=== PATIENT | female | born 1945 | race Caucasian/White ===

== ENCOUNTER → 2016-07-20 | Outpatient (CLI) | payer BC, MEDICARE ==
[~2016-07-20] MED LIST: ALEVE220 MG PO; AMBIEN 5MG TABLE5 MG PO; AMBIEN5 M1 PO; ANUSOL HC CREAM30 GM TOP; CALCIUM 600 MG-1 TAB PO; CEPHALEXIN500 M1 PO; CHILDREN'S ASPI81 M1 PO; CHILDREN'S CHEW1 CT2 PO; CLARITIN10 M1 PO; COLACE 100100 MG/CAP PO; DITROPAN XL 5MG5 M1 PO; DOS PO; KONSYL ORA PO; LIBRIUM 10M10 MG/CAP PO; MEDI-FIRST ASP325 MG PO; MULTIVITAMIN PO; NORCO 325 MG-51 TA1 PO; NORCO 325 MG-7.1 TAB PO; OXYCODONE PO; PEG 335017 GM/Dose PO; RECLAST5 MG/1001 IV; ROXICODONE 55 MG/TAB PO; SARNA ANTI-ITC222 ML TOP; SENOKOT S 50 MG1 TAB PO; TOPROL XL50 MG PO; VESICARE10 MG PO; VITAMIN C PURE500 M1 PO
== END ==
LOC: MAMMO 09:15
DX: Z12.31 Encounter for screening mammogram for malignant neoplasm of breast (principal)
CPT/HCPCS: G0202

== ENCOUNTER → 2016-07-28 | Outpatient (CLI) | payer BC, MEDICARE | LOC: LAB 07:52 | DX: Z00.00 Encounter for general adult medical examination without abnormal findings (principal); Z13.220 Encounter for screening for lipoid disorders; R53.81 Other malaise ==

== ENCOUNTER → 2016-08-26 | Outpatient (CLI) | payer BC, MEDICARE | LOC: LAB 10:35 | DX: Z01.818 Encounter for other preprocedural examination (principal); N39.3 Stress incontinence (female) (male); N81.10 Cystocele, unspecified ==

== ENCOUNTER → 2016-09-14 | Outpatient (CLI) | payer BC, MEDICARE ==
[2016-09-14 10:52] VITALS: BP 163/74
== END ==
LOC: AMSURD 10:19
DX: Z01.818 Encounter for other preprocedural examination (principal); N81.10 Cystocele, unspecified; B94.8 Sequelae of other specified infectious and parasitic diseases

== ENCOUNTER → 2016-09-15 | Outpatient (CLI) | payer BC, MEDICARE | LOC: VAS 17:22 | DX: R94.01 Abnormal electroencephalogram [EEG] (principal); Z01.818 Encounter for other preprocedural examination; Z87.891 Personal history of nicotine dependence; I34.0 Nonrheumatic mitral (valve) insufficiency ==

== ENCOUNTER → 2016-11-04 | Outpatient (CLI) | payer BC, MEDICARE ==
[2016-09-14 10:52] VITALS: BP 163/74
== END ==
LOC: LAB 11:25
DX: R35.0 Frequency of micturition (principal)

== ENCOUNTER → 2016-12-15 | Outpatient (CLI) | payer BC, MEDICARE ==
[2016-09-14 10:52] VITALS: BP 163/74
== END ==
LOC: LAB 11:56
DX: L29.8 Other pruritus (principal)

== ENCOUNTER → 2017-01-27 | Outpatient (CLI) | payer BC, MEDICARE ==
[2016-09-14 10:52] VITALS: BP 163/74
== END ==
LOC: LAB 11:32
DX: N76.3 Subacute and chronic vulvitis (principal)

== ENCOUNTER → 2017-07-26 | Outpatient (CLI) | payer BC ==
[2016-09-14 10:52] VITALS: BP 163/74
[2017-07-26 10:09] LABS: ALBUMIN 4.3 g/dL (3.5-5.0); BUN/CREATININE RATIO 13.1 (6.0-26.0); CALCIUM 9.6 mg/dL (8.4-10.2); POTASSIUM 3.8 mmol/L (3.6-5.0); TOTAL BILIRUBIN 0.4 mg/dL (0.2-1.3); TOTAL PROTEIN 7.1 g/dL (6.3-8.2)
== END ==
LOC: LAB 09:22 → RAD 09:22
PROVIDERS: Nurse Practitioner Family
DX: Z12.31 Encounter for screening mammogram for malignant neoplasm of breast (principal); I25.10 Atherosclerotic heart disease of native coronary artery without angina pectoris

== ENCOUNTER → 2018-01-02 | Outpatient (CLI) | payer BC ==
[2016-09-14 10:52] VITALS: BP 163/74
== END ==
LOC: RAD 01-01 11:51
DX: R09.89 Other specified symptoms and signs involving the circulatory and respiratory systems (principal); M81.0 Age-related osteoporosis without current pathological fracture

== ENCOUNTER → 2018-02-20 | Day surgery (SDC) | payer BC ==
[2016-09-14 10:52] VITALS: BP 163/74
[~2018-02-20] MED LIST changes: +ANIMAL CHEWS1 EACH PO; +AUGMENTIN 875-1 EAC1 PO; +MYRBETRIQ50 MG PO
== END ==
LOC: MSO 08:15
DX: R19.5 Other fecal abnormalities (principal); D12.0 Benign neoplasm of cecum; D12.3 Benign neoplasm of transverse colon; Z86.010 Personal history of colon polyps; K59.00 Constipation, unspecified; Z79.82 Long term (current) use of aspirin; Z79.899 Other long term (current) drug therapy; I50.9 Heart failure, unspecified; I20.9 Angina pectoris, unspecified; I38 Endocarditis, valve unspecified
CPT/HCPCS: 00811; J2704; J7120

== ENCOUNTER 2018-02-24 13:45 | Emergency (ER) | payer BC ==
[~2018-02-24] VITALS: Ht 162.6 cm; Wt 47.7 kg
[~2018-02-24 13:45] MED LIST changes: -ANIMAL CHEWS1 EACH PO; -AUGMENTIN 875-1 EAC1 PO; -MYRBETRIQ50 MG PO
[2018-02-24] MEDS ORDERED: MYRBETRIQ50 MG PO (15:08)
[2018-02-24] MEDS ORDERED: CHILDREN'S ASPI81 M1 PO (15:08)
[2018-02-24] MEDS ORDERED: ANIMAL CHEWS1 EACH PO (15:09)
[2018-02-24] MEDS ORDERED: NORCO 325 MG-51 TA1 PO (16:09)
[2018-02-24] MEDS ORDERED: AUGMENTIN 875-1 EAC1 PO (16:09)
[2018-02-24 16:43] VITALS: BP 150/89
== END 2018-02-24 16:25 | disposition home or self-care (01) ==
LOC: ED 13:45
DX: S09.90XA Unspecified injury of head, initial encounter (principal); S81.012A Laceration without foreign body, left knee, initial encounter; S01.111A Laceration without foreign body of right eyelid and periocular area, initial encounter; W01.198A Fall on same level from slipping, tripping and stumbling with subsequent striking against other object, initial encounter; Y92.009 Unspecified place in unspecified non-institutional (private) residence as the place of occurrence of the external cause; S50.311A Abrasion of right elbow, initial encounter; S50.812A Abrasion of left forearm, initial encounter; R40.2412 Glasgow coma scale score 13-15, at arrival to emergency department; Z79.82 Long term (current) use of aspirin; Z79.899 Other long term (current) drug therapy

== ENCOUNTER → 2018-02-28 | Outpatient (CLI) | payer BC ==
[2018-02-24 16:43] VITALS: BP 150/89
[~2018-02-28] MED LIST changes: +ANIMAL CHEWS1 EACH PO; +AUGMENTIN 875-1 EAC1 PO; +MYRBETRIQ50 MG PO
== END ==
LOC: RAD 09:33
DX: J84.10 Pulmonary fibrosis, unspecified (principal); R07.9 Chest pain, unspecified; M79.621 Pain in right upper arm; M25.78 Osteophyte, vertebrae; W19.XXXA Unspecified fall, initial encounter

== ENCOUNTER → 2018-03-07 | Outpatient (CLI) | payer BC ==
[2018-02-24 16:43] VITALS: BP 150/89
== END ==
LOC: LAB 09:26
DX: L03.116 Cellulitis of left lower limb (principal); L02.416 Cutaneous abscess of left lower limb; Z91.81 History of falling

== ENCOUNTER → 2018-03-30 | Outpatient (CLI) | payer BC ==
[2018-03-30 11:21] LABS: HEMATOCRIT 41.1 % (37.0-47.0); MEAN CELL VOLUME 96 fl (78-100); MEAN CORPUSCULAR HEMOGLOBIN 33 pg (27-31); MEAN CORPUSCULAR HGB CONC 34 g/dL (33-37); MEAN PLATELET VOLUME 8.8 fl (7.4-10.4); PLATELET COUNT 360 K/mm3 (130-400); RED BLOOD COUNT 4.27 M/mm3 (4.10-5.30); RED CELL DISTRIBUTION WIDTH 12.2 % (11.5-14.5); WHITE BLOOD COUNT 6.4 K/mm3 (4.8-10.8)
[2018-03-30 11:47] LABS: ALBUMIN 4.7 g/dL (3.5-5.0); CALCIUM 9.7 mg/dL (8.4-10.2); TOTAL BILIRUBIN 0.6 mg/dL (0.2-1.3); TOTAL PROTEIN 7.5 g/dL (6.3-8.2)
[2018-03-30 12:04] LABS: POTASSIUM 3.8 mmol/L (3.6-5.0)
[2018-03-30 12:42] LABS: LYMPHOCYTE 32 % (20-51); MONOCYTE 8 % (3-10); NEUTROPHILS 58 % (42-75)
[2018-03-30 12:44] LABS: ERYTHROCYTE SEDIMENTATION RATE 1 mm/hr (0-30)
== END ==
LOC: LAB 10:58
PROVIDERS: Physician Assistant
DX: M25.569 Pain in unspecified knee (principal); Z91.81 History of falling

== ENCOUNTER → 2018-04-03 | Outpatient (CLI) | payer BC | LOC: RAD 12:00 | DX: S80.02XA Contusion of left knee, initial encounter (principal); S80.12XA Contusion of left lower leg, initial encounter; W19.XXXA Unspecified fall, initial encounter ==

== ENCOUNTER → 2018-08-09 | Outpatient (CLI) | payer BC | LOC: MAMMO 13:32 | DX: Z12.31 Encounter for screening mammogram for malignant neoplasm of breast (principal) ==

== ENCOUNTER → 2018-11-09 | Outpatient (CLI) | payer BC ==
[2018-11-09 11:32] LABS: BASO # 0.1 (0.02-0.10); EOS % 0.5 % (1.0-5.0); HEMATOCRIT 39.6 % (37.0-47.0); HEMOGLOBIN 13.3 g/dL (12.5-16.0); LYMPH# 1.6 (1.50-4.00); MEAN CELL VOLUME 101 fl (78-100); MEAN CORPUSCULAR HEMOGLOBIN 34 pg (27-31); MEAN CORPUSCULAR HGB CONC 34 g/dL (33-37); MEAN PLATELET VOLUME 9.1 fl (7.4-10.4); MONO # 0.9 (0.20-0.80); NEU # 5.9 (1.40-6.50); PLATELET COUNT 266 K/mm3 (130-400); RED BLOOD COUNT 3.94 M/mm3 (4.10-5.30); RED CELL DISTRIBUTION WIDTH 12.3 % (11.5-14.5); WHITE BLOOD COUNT 8.4 K/mm3 (4.8-10.8)
[2018-11-09 12:11] LABS: ALBUMIN 4.4 g/dL (3.4-4.8); CALCIUM 10.1 mg/dL (8.3-10.5); POTASSIUM 3.8 mmol/L (3.5-5.1); TOTAL BILIRUBIN 0.4 mg/dL (0.2-1.2); TOTAL PROTEIN 6.9 g/dL (6.2-8.1)
== END ==
LOC: RAD 10:56
PROVIDERS: Physician Assistant
DX: J44.9 Chronic obstructive pulmonary disease, unspecified (principal); R10.13 Epigastric pain; R63.0 Anorexia; E03.9 Hypothyroidism, unspecified; F10.20 Alcohol dependence, uncomplicated; Z72.0 Tobacco use; I10 Essential (primary) hypertension; F43.0 Acute stress reaction; G47.00 Insomnia, unspecified; R53.83 Other fatigue

== ENCOUNTER → 2018-11-20 | Outpatient (CLI) | payer BC ==
[~2018-11-20] VITALS: Ht 162.6 cm; Wt 46.4 kg
[~2018-11-20] MED LIST changes: +ZANTAC150 M1 PO
[2018-11-20 10:22] VITALS: BP 156/79
== END ==
LOC: LAB 08:54
DX: I50.30 Unspecified diastolic (congestive) heart failure (principal); R10.13 Epigastric pain

== ENCOUNTER → 2018-11-22 | Outpatient (CLI) | payer BC ==
[2018-11-20 10:22] VITALS: BP 156/79
== END ==
LOC: RAD 08:42
DX: Z00.00 Encounter for general adult medical examination without abnormal findings (principal); Z12.31 Encounter for screening mammogram for malignant neoplasm of breast; M81.0 Age-related osteoporosis without current pathological fracture; J43.9 Emphysema, unspecified; J84.10 Pulmonary fibrosis, unspecified; R63.4 Abnormal weight loss

== ENCOUNTER → 2019-03-12 | Outpatient (CLI) | payer BC ==
[2018-11-20 10:22] VITALS: BP 156/79
[2019-03-12 09:15] LABS: HEMATOCRIT 40.1 % (37.0-47.0); HEMOGLOBIN 13.9 g/dL (12.5-16.0); MEAN CELL VOLUME 95 fl (78-100); MEAN CORPUSCULAR HEMOGLOBIN 33 pg (27-31); MEAN CORPUSCULAR HGB CONC 35 g/dL (33-37); MEAN PLATELET VOLUME 8.7 fl (7.4-10.4); PLATELET COUNT 305 K/mm3 (130-400); RED BLOOD COUNT 4.21 M/mm3 (4.10-5.30); RED CELL DISTRIBUTION WIDTH 13.7 % (11.5-14.5); WHITE BLOOD COUNT 6.8 K/mm3 (4.8-10.8)
[2019-03-12 10:05] LABS: ALBUMIN 4.8 g/dL (3.4-4.8); CALCIUM 10.2 mg/dL (8.3-10.5); POTASSIUM 3.2 mmol/L (3.5-5.1); TOTAL BILIRUBIN 0.4 mg/dL (0.2-1.2); TOTAL PROTEIN 7.4 g/dL (6.2-8.1)
[2019-03-12 11:35] LABS: LYMPHOCYTE 19 % (20-51); MONOCYTE 19 % (3-10); NEUTROPHILS 62 % (42-75)
== END ==
LOC: LAB 08:52
PROVIDERS: Internal Medicine Pulmonary Disease
DX: J44.9 Chronic obstructive pulmonary disease, unspecified (principal)

== ENCOUNTER → 2019-03-15 | Outpatient (CLI) | payer BC ==
[2018-11-20 10:22] VITALS: BP 156/79
[~2019-03-15] MED LIST changes: +ESCITALOPRAM10 MG PO; +NORVASC 10MG10 MG PO; +SINGULAIR 110 MG/TAB PO
== END ==
LOC: LAB 10:15
DX: J44.9 Chronic obstructive pulmonary disease, unspecified (principal)

== ENCOUNTER 2019-04-24 11:49 | Emergency (ER) | payer BC ==
[~2019-04-24 11:49] MED LIST changes: -ESCITALOPRAM10 MG PO; -NORVASC 10MG10 MG PO; -SINGULAIR 110 MG/TAB PO
[2019-04-24] MEDS ORDERED: NORVASC 10MG10 MG PO (12:03)
[2019-04-24] MEDS ORDERED: ESCITALOPRAM10 MG PO (12:03)
[2019-04-24] MEDS ORDERED: SINGULAIR 110 MG/TAB PO (12:04)
[2019-04-24 14:01] VITALS: BP 139/76
== END 2019-04-24 14:02 | disposition home or self-care (01) ==
LOC: ED 11:49
DX: S30.0XXA Contusion of lower back and pelvis, initial encounter (principal); M47.816 Spondylosis without myelopathy or radiculopathy, lumbar region; I50.9 Heart failure, unspecified; K21.9 Gastro-esophageal reflux disease without esophagitis; J44.9 Chronic obstructive pulmonary disease, unspecified; F17.210 Nicotine dependence, cigarettes, uncomplicated; Z79.82 Long term (current) use of aspirin; W18.30XA Fall on same level, unspecified, initial encounter; Y92.000 Kitchen of unspecified non-institutional (private) residence as the place of occurrence of the external cause

== ENCOUNTER 2019-05-18 13:18 | Emergency (ER) | payer BC ==
[~2019-05-18] VITALS: Ht 162.6 cm; Wt 46.4 kg
[~2019-05-18 13:18] MED LIST changes: +ESCITALOPRAM10 MG PO; +NORVASC 10MG10 MG PO; +SINGULAIR 110 MG/TAB PO
[2019-05-18 14:04] LABS: EOS % 0.2 % (1.0-5.0); HEMOGLOBIN 13.1 g/dL (12.5-16.0); LYMPH# 1.5 (1.50-4.00); MEAN CELL VOLUME 98 fl (78-100); MEAN CORPUSCULAR HEMOGLOBIN 34 pg (27-31); MEAN CORPUSCULAR HGB CONC 35 g/dL (33-37); MONO # 0.9 (0.20-0.80); NEU # 9.5 (1.40-6.50); PLATELET COUNT 226 K/mm3 (130-400); RED BLOOD COUNT 3.87 M/mm3 (4.10-5.30); RED CELL DISTRIBUTION WIDTH 12.8 % (11.5-14.5)
[2019-05-18 14:09] LABS: ALBUMIN 4.7 g/dL (3.4-4.8); POTASSIUM 3.3 mmol/L (3.5-5.1)
[2019-05-18 14:10] LABS: CALCIUM 9.5 mg/dL (8.3-10.5)
[2019-05-18 14:11] LABS: TOTAL PROTEIN 7.2 g/dL (6.2-8.1)
[2019-05-18 14:13] LABS: TOTAL BILIRUBIN 0.6 mg/dL (0.2-1.2)
[2019-05-18 14:18] LABS: MAGNESIUM 1.56 mg/dL (1.60-2.60)
[2019-05-18 14:44] LABS: PH-URINE 6.5 (5.0 - 8.0); URINE APPEARANCE HAZY; URINE BILIRUBIN NEGATIVE (NEGATIVE); URINE BLOOD TRACE (NEGATIVE); URINE COLOR YELLOW; URINE GLUCOSE NEGATIVE (NEGATIVE); URINE KETONE NEGATIVE (NEGATIVE); URINE LEUKOCYTE ESTERASE 1+ (NEGATIVE); URINE NITRATE POSITIVE (NEGATIVE); URINE PROTEIN(semi-quant) TRACE mg/dL (NEGATIVE); URINE UROBILINOGEN NORMAL (NORMAL)
[2019-05-18 14:45] LABS: URINE MUCUS NOT PRESENT (NOT PRESENT)
[2019-05-18] MEDS ORDERED: MELATONIN5 M3 PO (14:57)
[2019-05-18] MEDS ORDERED: AMLODIPINE BES2.5 MG PO (14:58)
[2019-05-18] MEDS ORDERED: ZYRTEC ALLERGY10 MG PO (14:59)
[2019-05-18] MEDS ORDERED: NICOTINE TRANSD1 TDM TD (15:10)
[2019-05-18 15:58] VITALS: BP 161/86
== END 2019-05-18 16:00 | disposition other institution (70) ==
LOC: ED 13:18
PROVIDERS: Nurse Practitioner Primary Care
DX: F10.129 Alcohol abuse with intoxication, unspecified (principal); M54.5 Low back pain; R29.6 Repeated falls; I10 Essential (primary) hypertension; J44.9 Chronic obstructive pulmonary disease, unspecified; F17.210 Nicotine dependence, cigarettes, uncomplicated; Z79.82 Long term (current) use of aspirin; Z98.890 Other specified postprocedural states; Y90.7 Blood alcohol level of 200-239 mg/100 ml

== ENCOUNTER 2019-05-18 14:45 | Inpatient (IN) | payer BC, MEDICARE ==
[~2019-05-18] VITALS: Ht 165.1 cm; Wt 46.1 kg
[2019-05-18] MEDS ORDERED: MELATONIN5 M3 PO (14:57)
[2019-05-18] MEDS ORDERED: AMLODIPINE BES2.5 MG PO (14:58)
[2019-05-18] MEDS ORDERED: ZYRTEC ALLERGY10 MG PO (14:59)
[2019-05-18] MEDS ORDERED: NICOTINE TRANSD1 TDM TD (15:10)
[2019-05-18 16:47] VITALS: BP 149/76
[2019-05-18 18:16] VITALS: BP 148/76
[2019-05-18 19:02] VITALS: BP 114/59
[2019-05-18 22:31] VITALS: BP 111/50
[2019-05-19 02:21] VITALS: BP 120/66
[2019-05-19 06:17] VITALS: BP 115/66
[2019-05-19 09:10] LABS: EOS # 0.1 (0.04-0.40); EOS % 0.6 % (1.0-5.0); HEMATOCRIT 37.1 % (37.0-47.0); HEMOGLOBIN 12.4 g/dL (12.5-16.0); LYMPH# 1.1 (1.50-4.00); MEAN CELL VOLUME 101 fl (78-100); MEAN CORPUSCULAR HEMOGLOBIN 34 pg (27-31); MEAN CORPUSCULAR HGB CONC 33 g/dL (33-37); MEAN PLATELET VOLUME 9.2 fl (7.4-10.4); NEU # 5.9 (1.40-6.50); PLATELET COUNT 194 K/mm3 (130-400); RED BLOOD COUNT 3.66 M/mm3 (4.10-5.30); WHITE BLOOD COUNT 8.1 K/mm3 (4.8-10.8)
[2019-05-19 09:11] LABS: POTASSIUM 3.3 mmol/L (3.5-5.1)
[2019-05-19 09:12] LABS: CALCIUM 9.3 mg/dL (8.3-10.5)
[2019-05-19 09:13] LABS: TOTAL PROTEIN 6.2 g/dL (6.2-8.1)
[2019-05-19 09:15] LABS: TOTAL BILIRUBIN 1.1 mg/dL (0.2-1.2)
[2019-05-19 10:18] VITALS: BP 122/68
[2019-05-19 14:16] VITALS: BP 127/64
[2019-05-19 18:11] VITALS: BP 147/83
[2019-05-19 22:15] VITALS: BP 129/66
[2019-05-20] VITALS (14 sets, daily range): BP systolic 125–159; BP diastolic 58–80
[2019-05-20 12:28] LABS: HEMATOCRIT 34.7 % (37.0-47.0); HEMOGLOBIN 11.7 g/dL (12.5-16.0); MEAN CELL VOLUME 102 fl (78-100); MEAN CORPUSCULAR HEMOGLOBIN 34 pg (27-31); MEAN CORPUSCULAR HGB CONC 34 g/dL (33-37); PLATELET COUNT 161 K/mm3 (130-400); RED CELL DISTRIBUTION WIDTH 12.7 % (11.5-14.5); WHITE BLOOD COUNT 7.5 K/mm3 (4.8-10.8)
[2019-05-20 12:38] LABS: POTASSIUM 3.7 mmol/L (3.5-5.1)
[2019-05-20 12:39] LABS: BAND 0 % (0-10); CALCIUM 8.9 mg/dL (8.3-10.5); LYMPHOCYTE 15 % (20-51); MONOCYTE 12 % (3-10); NEUTROPHILS 72 % (42-75)
[2019-05-20 12:40] LABS: TOTAL PROTEIN 6.1 g/dL (6.2-8.1)
[2019-05-20 12:42] LABS: TOTAL BILIRUBIN 0.6 mg/dL (0.2-1.2)
[2019-05-20 12:47] LABS: MAGNESIUM 1.37 mg/dL (1.60-2.60)
[2019-05-21] VITALS (13 sets, daily range): BP systolic 109–155; BP diastolic 62–79
[2019-05-21 06:30] LABS: HEMATOCRIT 34.9 % (37.0-47.0); HEMOGLOBIN 11.5 g/dL (12.5-16.0); MEAN CELL VOLUME 102 fl (78-100); MEAN CORPUSCULAR HEMOGLOBIN 34 pg (27-31); MEAN CORPUSCULAR HGB CONC 33 g/dL (33-37); PLATELET COUNT 176 K/mm3 (130-400); RED BLOOD COUNT 3.41 M/mm3 (4.10-5.30); RED CELL DISTRIBUTION WIDTH 12.5 % (11.5-14.5)
[2019-05-21 06:43] LABS: POTASSIUM 3.6 mmol/L (3.5-5.1)
[2019-05-21 06:44] LABS: CALCIUM 9.5 mg/dL (8.3-10.5)
[2019-05-21 06:51] LABS: MAGNESIUM 1.55 mg/dL (1.60-2.60)
[2019-05-21 07:10] LABS: LYMPHOCYTE 17 % (20-51); MONOCYTE 12 % (3-10); NEUTROPHILS 69 % (42-75)
[2019-05-22 00:03] VITALS: BP 133/70
[2019-05-22 03:53] VITALS: BP 144/75
[2019-05-22 08:00] VITALS: BP 154/80
[2019-05-22 12:12] VITALS: BP 138/77
== END 2019-05-22 11:26 | disposition swing bed (61) | DRG 897 ==
LOC: MED/SURG 14:45
PROVIDERS: ADMIT Nurse Practitioner Primary Care
DX: F10.129 Alcohol abuse with intoxication, unspecified (principal); N39.0 Urinary tract infection, site not specified; Y90.7 Blood alcohol level of 200-239 mg/100 ml; I10 Essential (primary) hypertension; J44.9 Chronic obstructive pulmonary disease, unspecified; I50.9 Heart failure, unspecified; F41.9 Anxiety disorder, unspecified; F32.9 Major depressive disorder, single episode, unspecified; E87.6 Hypokalemia; M54.5 Low back pain; E83.42 Hypomagnesemia; Z90.710 Acquired absence of both cervix and uterus; Z91.81 History of falling; Z79.82 Long term (current) use of aspirin; Z88.9 Allergy status to unspecified drugs, medicaments and biological substances
CPT/HCPCS: C9113; J1650; J1885; J2060; J3411; J3475; J3490; J7030

== ENCOUNTER 2019-05-22 12:21 | Inpatient (IN) | payer BC, MEDICARE ==
[~2019-05-22] VITALS: Ht 167.6 cm; Wt 49.6 kg
[~2019-05-22 12:21] MED LIST changes: +AMLODIPINE BES2.5 MG PO; +MELATONIN5 M3 PO; +NICOTINE TRANSD1 TDM TD; +ZYRTEC ALLERGY10 MG PO
[2019-05-22 12:40] VITALS: BP 138/77
[2019-05-22 12:42] VITALS: BP 138/77
[2019-05-22 12:53] LABS: EOS # 0.1 (0.04-0.40); HEMATOCRIT 34.2 % (37.0-47.0); HEMOGLOBIN 11.4 g/dL (12.5-16.0); LYMPH# 0.9 (1.50-4.00); MEAN CELL VOLUME 103 fl (78-100); MEAN CORPUSCULAR HEMOGLOBIN 34 pg (27-31); MEAN CORPUSCULAR HGB CONC 33 g/dL (33-37); MEAN PLATELET VOLUME 8.9 fl (7.4-10.4); MONO # 0.8 (0.20-0.80); NEU # 5.3 (1.40-6.50); PLATELET COUNT 217 K/mm3 (130-400); RED BLOOD COUNT 3.33 M/mm3 (4.10-5.30); RED CELL DISTRIBUTION WIDTH 12.3 % (11.5-14.5); WHITE BLOOD COUNT 7.1 K/mm3 (4.8-10.8)
[2019-05-22 12:59] LABS: ALBUMIN 3.9 g/dL (3.4-4.8); POTASSIUM 3.9 mmol/L (3.5-5.1)
[2019-05-22 13:00] LABS: CALCIUM 9.7 mg/dL (8.3-10.5)
[2019-05-22 13:02] LABS: TOTAL PROTEIN 6.1 g/dL (6.2-8.1)
[2019-05-22 13:03] LABS: TOTAL BILIRUBIN 0.5 mg/dL (0.2-1.2)
[2019-05-22 13:08] LABS: MAGNESIUM 1.38 mg/dL (1.60-2.60)
[2019-05-22 15:06] VITALS: BP 124/68
[2019-05-22 18:07] VITALS: BP 127/64
[2019-05-22 22:09] VITALS: BP 133/71
[2019-05-23 02:08] VITALS: BP 128/71
[2019-05-23 05:57] VITALS: BP 136/66
[2019-05-23 10:00] VITALS: BP 133/79
[2019-05-23 14:00] VITALS: BP 130/67
[2019-05-23 18:52] VITALS: BP 128/66
[2019-05-23 22:31] VITALS: BP 138/63
[2019-05-24 02:43] VITALS: BP 133/75
[2019-05-24 05:52] VITALS: BP 121/75
[2019-05-24 10:00] VITALS: BP 117/78
[2019-05-24 12:31] LABS: POTASSIUM 5.6 mmol/L (3.5-5.1)
[2019-05-24 12:32] LABS: CALCIUM 9.9 mg/dL (8.3-10.5)
[2019-05-24 12:39] LABS: MAGNESIUM 1.57 mg/dL (1.60-2.60)
[2019-05-24 14:20] VITALS: BP 123/69
[2019-05-24 18:20] VITALS: BP 121/65
[2019-05-25 05:57] VITALS: BP 116/69
[2019-05-25 06:18] LABS: POTASSIUM 4.6 mmol/L (3.5-5.1)
[2019-05-25 06:19] LABS: CALCIUM 9.4 mg/dL (8.3-10.5)
[2019-05-25 06:26] LABS: MAGNESIUM 1.97 mg/dL (1.60-2.60)
[2019-05-25 18:20] VITALS: BP 119/66
[2019-05-26 06:03] VITALS: BP 130/65
[2019-05-26 18:35] VITALS: BP 130/72
[2019-05-27 06:12] VITALS: BP 121/66
[2019-05-27 18:09] VITALS: BP 128/62
[2019-05-28 06:33] VITALS: BP 134/71
[2019-05-28 18:24] VITALS: BP 144/67
[2019-05-29 05:57] VITALS: BP 134/72
[2019-05-29 06:19] LABS: POTASSIUM 4.4 mmol/L (3.5-5.1)
[2019-05-29 06:20] LABS: CALCIUM 9.4 mg/dL (8.3-10.5)
[2019-05-29 06:27] LABS: MAGNESIUM 1.59 mg/dL (1.60-2.60)
[2019-05-29] MEDS ORDERED: ZYRTEC ALLERGY10 MG PO (08:48)
[2019-05-29] MEDS ORDERED: IPRATROPIUM BROM3 M1 IH (08:49)
[2019-05-29] MEDS ORDERED: CHILDREN'S ASPI81 M1 PO (08:49)
[2019-05-29] MEDS ORDERED: AMLODIPINE BES2.5 MG PO (08:49)
[2019-05-29] MEDS ORDERED: NICOTINE TRANSD1 TDM TD (08:49)
[2019-05-29] MEDS ORDERED: MELOXICAM15 MG PO (08:52)
[2019-05-29] MEDS ORDERED: ACETAMINOPHEN325 M1 PO (08:52)
[2019-05-29] MEDS ORDERED: ESCITALOPRAM20 MG PO (08:53)
[2019-05-29] MEDS ORDERED: DOCUSATE SOD100 MG PO (08:54)
[2019-05-29] MEDS ORDERED: HEALTHYLAX17 GM/Dose PO (08:54)
[2019-05-29] MEDS ORDERED: SINGULAIR 110 MG/TAB PO (08:54)
[2019-05-29] MEDS ORDERED: Lidocaine 4% Patch TP (08:55)
[2019-05-29] MEDS ORDERED: FOLIC ACID1 MG PO (08:55)
[2019-05-29] MEDS ORDERED: ZANTAC150 M1 PO (08:55)
[2019-05-29] MEDS ORDERED: THIAMINE HCL100 M1 PO (08:55)
[2019-05-29] MEDS ORDERED: PANTOPRAZOLE SO40 MG PO (08:55)
[2019-05-29] MEDS ORDERED: MELATONIN5 M3 PO (08:56)
[2019-05-29] MEDS ORDERED: ANIMAL CHEWS1 EACH PO (08:56)
[2019-05-29] MEDS ORDERED: VITAMIN C500 MG PO (08:56)
[2019-05-29] MEDS ORDERED: KLONOPIN 0.5MG0.5 MG PO (08:57)
[2019-05-29] MEDS ORDERED: MAG-OX 400400 MG/TAB PO (08:57)
[2019-05-29] MEDS ORDERED: AEROSOL THERAPY1 DEV INH (08:58)
[2019-05-29] MEDS ORDERED: LIDODERM1 EACH TP (09:00)
[2019-05-29] MEDS ORDERED: MUCINEX1200 MG PO (09:09)
[2019-05-29 18:20] VITALS: BP 139/69
[2019-05-30 06:06] VITALS: BP 144/64
== END 2019-05-30 10:25 | disposition home or self-care (01) | DRG 948 ==
LOC: MED/SURG 12:21
PROVIDERS: Nurse Practitioner Family; ADMIT Nurse Practitioner Primary Care
DX: R53.81 Other malaise (principal); E46 Unspecified protein-calorie malnutrition; Z68.1 Body mass index [BMI] 19.9 or less, adult; N39.0 Urinary tract infection, site not specified; I10 Essential (primary) hypertension; F41.9 Anxiety disorder, unspecified; F10.20 Alcohol dependence, uncomplicated; E83.42 Hypomagnesemia; K21.9 Gastro-esophageal reflux disease without esophagitis; F17.210 Nicotine dependence, cigarettes, uncomplicated; Z79.82 Long term (current) use of aspirin; Z91.81 History of falling; Z90.710 Acquired absence of both cervix and uterus; Z88.6 Allergy status to analgesic agent; M54.5 Low back pain
CPT/HCPCS: J1650; J3475

== ENCOUNTER → 2019-08-08 | Outpatient (CLI) | payer BC ==
[~2019-08-08] MED LIST changes: +ACETAMINOPHEN325 M1 PO; +AEROSOL THERAPY1 DEV INH; +DOCUSATE SOD100 MG PO; +ESCITALOPRAM20 MG PO; +FOLIC ACID1 MG PO; +HEALTHYLAX17 GM/Dose PO; +IPRATROPIUM BROM3 M1 IH; +KLONOPIN 0.5MG0.5 MG PO; +LIDODERM1 EACH TP; +Lidocaine 4% Patch TP; +MAG-OX 400400 MG/TAB PO; +MELOXICAM15 MG PO; +MUCINEX1200 MG PO; +PANTOPRAZOLE SO40 MG PO; +THIAMINE HCL100 M1 PO; +VITAMIN C500 MG PO
[2019-08-08 15:26] LABS: HEMATOCRIT 38.2 % (37.0-47.0); HEMOGLOBIN 12.9 g/dL (12.5-16.0); MEAN CELL VOLUME 92 fl (78-100); MEAN CORPUSCULAR HEMOGLOBIN 31 pg (27-31); MEAN CORPUSCULAR HGB CONC 34 g/dL (33-37); MEAN PLATELET VOLUME 8.1 fl (7.4-10.4); PLATELET COUNT 370 K/mm3 (130-400); RED BLOOD COUNT 4.16 M/mm3 (4.10-5.30); RED CELL DISTRIBUTION WIDTH 12.3 % (11.5-14.5); WHITE BLOOD COUNT 6.4 K/mm3 (4.8-10.8)
[2019-08-08 15:48] LABS: POTASSIUM 3.7 mmol/L (3.5-5.1)
[2019-08-08 15:49] LABS: ALBUMIN 4.8 g/dL (3.4-4.8)
[2019-08-08 15:50] LABS: CALCIUM 9.8 mg/dL (8.3-10.5)
[2019-08-08 15:51] LABS: TOTAL PROTEIN 7.4 g/dL (6.2-8.1)
[2019-08-08 15:53] LABS: TOTAL BILIRUBIN 0.2 mg/dL (0.2-1.2)
[2019-08-08 15:58] LABS: MAGNESIUM 1.69 mg/dL (1.60-2.60)
[2019-08-08 17:00] LABS: LYMPHOCYTE 25 % (20-51); MONOCYTE 11 % (3-10); NEUTROPHILS 63 % (42-75)
[2019-08-08 17:01] LABS: ERYTHROCYTE SEDIMENTATION RATE 4 mm/hr (0-30)
[2019-08-08 17:32] LABS: URINE APPEARANCE HAZY; URINE COLOR YELLOW; URINE PROTEIN(semi-quant) 1+ mg/dL (NEGATIVE)
[2019-08-08 17:33] LABS: URINE BILIRUBIN NEGATIVE (NEGATIVE); URINE BLOOD NEGATIVE (NEGATIVE); URINE GLUCOSE NEGATIVE (NEGATIVE); URINE KETONE NEGATIVE (NEGATIVE); URINE LEUKOCYTE ESTERASE TRACE (NEGATIVE); URINE NITRATE POSITIVE (NEGATIVE); URINE UROBILINOGEN NORMAL (NORMAL)
== END ==
LOC: LAB 14:50 → RAD 14:50
PROVIDERS: Internal Medicine
DX: J44.1 Chronic obstructive pulmonary disease with (acute) exacerbation (principal); M54.5 Low back pain; Z72.0 Tobacco use

== ENCOUNTER → 2019-08-10 | Outpatient (CLI) | payer BC | LOC: CARDLAB → CARDREHAB 08:24 → CARDLAB 12:46 | DX: I50.30 Unspecified diastolic (congestive) heart failure (principal) | CPT/HCPCS: A9500 ==

== ENCOUNTER → 2019-08-10 | Outpatient (CLI) | payer BC | LOC: LAB 08-09 16:06 | DX: Z12.11 Encounter for screening for malignant neoplasm of colon (principal) ==

== ENCOUNTER → 2019-08-16 | Outpatient (CLI) | payer BC | LOC: RAD 08-09 16:00 → LAB 09:26 → RAD 10:45 | DX: Z13.820 Encounter for screening for osteoporosis (principal); Z12.11 Encounter for screening for malignant neoplasm of colon; S32.030A Wedge compression fracture of third lumbar vertebra, initial encounter for closed fracture; M81.0 Age-related osteoporosis without current pathological fracture ==

== ENCOUNTER 2019-08-23 10:00 | Outpatient (RCR) | payer BC ==
[2019-10-12] MEDS ORDERED: ROBAXIN 75750 MG/TA1 PO (10:49)
[2019-10-12] MEDS ORDERED: DESYREL50 MG PO (10:50)
[2019-10-12] MEDS ORDERED: LIDOCAINE1 EAC1 TP (10:53)
[2019-10-12] MEDS ORDERED: GAVILAX17 GM PO (10:55)
[2019-10-12] MEDS ORDERED: B COMPLEX1 EACH PO (10:56)
== END 2019-11-06 | disposition still patient (30) ==
LOC: OT
DX: M48.062 Spinal stenosis, lumbar region with neurogenic claudication (principal); M48.50XA Collapsed vertebra, not elsewhere classified, site unspecified, initial encounter for fracture

== ENCOUNTER → 2019-08-23 | Outpatient (CLI) | payer BC | LOC: LAB 07:46 | DX: Z12.11 Encounter for screening for malignant neoplasm of colon (principal) ==

== ENCOUNTER → 2019-09-17 | Outpatient (CLI) | payer BC | LOC: LAB 09:30 | DX: D64.9 Anemia, unspecified (principal); K90.9 Intestinal malabsorption, unspecified ==

== ENCOUNTER → 2019-10-12 | Outpatient (CLI) | payer BC ==
[~2019-10-12] VITALS: Ht 160 cm; Wt 54.1 kg
[~2019-10-12] MED LIST changes: +B COMPLEX1 EACH PO; +DESYREL50 MG PO; +GAVILAX17 GM PO; +LIDOCAINE1 EAC1 TP; +ROBAXIN 75750 MG/TA1 PO
[2019-10-12 10:20] VITALS: BP 138/71
[2019-10-12 11:05] VITALS: BP 145/71
== END ==
LOC: AMSURD 10:03
DX: M80.88XA Other osteoporosis with current pathological fracture, vertebra(e), initial encounter for fracture (principal)
CPT/HCPCS: J3489

== ENCOUNTER 2020-01-30 11:30 | Outpatient (RCR) | payer MEDICARE ==
[2019-10-12 11:05] VITALS: BP 145/71
== END 2020-01-30 12:00 ==
LOC: PT 11:30
DX: M25.562 Pain in left knee (principal); M54.5 Low back pain

== ENCOUNTER → 2020-02-06 | Day surgery (SDC) | payer MEDICARE ==
[2019-10-12 11:05] VITALS: BP 145/71
== END ==
LOC: MSO 10:37
DX: H25.812 Combined forms of age-related cataract, left eye (principal); M19.90 Unspecified osteoarthritis, unspecified site; J44.9 Chronic obstructive pulmonary disease, unspecified; F41.9 Anxiety disorder, unspecified; F32.9 Major depressive disorder, single episode, unspecified; Z87.891 Personal history of nicotine dependence; I50.30 Unspecified diastolic (congestive) heart failure; Z79.899 Other long term (current) drug therapy
CPT/HCPCS: 00142; J0171; J2250; V2632

== ENCOUNTER → 2020-03-20 | Outpatient (CLI) | payer MEDICARE ==
[2019-10-12 11:05] VITALS: BP 145/71
[2020-03-20 11:17] LABS: EOS # 0.1 (0.04-0.40); EOS % 1.3 % (1.0-5.0); HEMATOCRIT 40.4 % (37.0-47.0); HEMOGLOBIN 12.8 g/dL (12.5-16.0); LYMPH# 1.7 (1.50-4.00); MEAN CELL VOLUME 92 fl (78-100); MEAN CORPUSCULAR HEMOGLOBIN 29 pg (27-31); MEAN CORPUSCULAR HGB CONC 32 g/dL (33-37); MEAN PLATELET VOLUME 8.4 fl (7.4-10.4); MONO # 0.8 (0.20-0.80); NEU # 5.9 (1.40-6.50); PLATELET COUNT 330 K/mm3 (130-400); RED CELL DISTRIBUTION WIDTH 12.5 % (11.5-14.5); WHITE BLOOD COUNT 8.6 K/mm3 (4.8-10.8)
[2020-03-20 11:47] LABS: ALBUMIN 4.4 g/dL (3.4-4.8); POTASSIUM 4.3 mmol/L (3.5-5.1)
[2020-03-20 11:49] LABS: CALCIUM 9.5 mg/dL (8.3-10.5)
[2020-03-20 11:50] LABS: TOTAL PROTEIN 6.9 g/dL (6.2-8.1)
[2020-03-20 11:52] LABS: TOTAL BILIRUBIN 0.4 mg/dL (0.2-1.2)
== END ==
LOC: LAB 10:43
PROVIDERS: Physician Assistant
DX: Z00.00 Encounter for general adult medical examination without abnormal findings (principal); Z12.31 Encounter for screening mammogram for malignant neoplasm of breast; M48.062 Spinal stenosis, lumbar region with neurogenic claudication; S32.030A Wedge compression fracture of third lumbar vertebra, initial encounter for closed fracture; I50.30 Unspecified diastolic (congestive) heart failure; E61.1 Iron deficiency; M81.0 Age-related osteoporosis without current pathological fracture; I73.9 Peripheral vascular disease, unspecified; M79.605 Pain in left leg; R73.9 Hyperglycemia, unspecified

== ENCOUNTER → 2020-04-16 | Outpatient (CLI) | payer MEDICARE ==
[2019-10-12 11:05] VITALS: BP 145/71
== END ==
LOC: MAMMO 10:45
DX: Z00.00 Encounter for general adult medical examination without abnormal findings (principal); Z12.31 Encounter for screening mammogram for malignant neoplasm of breast; I50.9 Heart failure, unspecified; I50.30 Unspecified diastolic (congestive) heart failure; E61.1 Iron deficiency; M81.0 Age-related osteoporosis without current pathological fracture; M48.062 Spinal stenosis, lumbar region with neurogenic claudication; I73.9 Peripheral vascular disease, unspecified; S32.030A Wedge compression fracture of third lumbar vertebra, initial encounter for closed fracture; M79.605 Pain in left leg

== ENCOUNTER 2020-05-01 10:49 | Outpatient (RCR) | payer MEDICARE ==
[2019-10-12 11:05] VITALS: BP 145/71
== END 2020-05-12 16:23 | disposition still patient (30) ==
LOC: OPPGERO 10:49
DX: F32.89 Other specified depressive episodes (principal); F10.20 Alcohol dependence, uncomplicated; J44.9 Chronic obstructive pulmonary disease, unspecified; I50.30 Unspecified diastolic (congestive) heart failure; I11.0 Hypertensive heart disease with heart failure; I34.0 Nonrheumatic mitral (valve) insufficiency; M81.0 Age-related osteoporosis without current pathological fracture; M48.062 Spinal stenosis, lumbar region with neurogenic claudication; K63.5 Polyp of colon; E61.1 Iron deficiency; G47.00 Insomnia, unspecified; K13.79 Other lesions of oral mucosa; E03.9 Hypothyroidism, unspecified; Z80.3 Family history of malignant neoplasm of breast; Z81.1 Family history of alcohol abuse and dependence

== ENCOUNTER 2020-05-13 12:37 | Outpatient (RCR) | payer MEDICARE ==
[2019-10-12 11:05] VITALS: BP 145/71
== END 2020-06-12 18:21 | disposition home or self-care (01) ==
LOC: OPPGERO 12:37
DX: F33.9 Major depressive disorder, recurrent, unspecified (principal); F10.21 Alcohol dependence, in remission; Z80.3 Family history of malignant neoplasm of breast; Z87.891 Personal history of nicotine dependence

== ENCOUNTER → 2020-06-10 | Outpatient (CLI) | payer MEDICARE ==
[2019-10-12 11:05] VITALS: BP 145/71
[2020-06-10 11:07] LABS: BASO # 0.1 (0.02-0.10); EOS # 0.1 (0.04-0.40); EOS % 1.5 % (1.0-5.0); HEMATOCRIT 39.4 % (37.0-47.0); HEMOGLOBIN 12.5 g/dL (12.5-16.0); LYMPH# 1.7 (1.50-4.00); MEAN CELL VOLUME 91 fl (78-100); MEAN CORPUSCULAR HEMOGLOBIN 29 pg (27-31); MEAN CORPUSCULAR HGB CONC 32 g/dL (33-37); MEAN PLATELET VOLUME 8.8 fl (7.4-10.4); MONO # 0.7 (0.20-0.80); NEU # 6.1 (1.40-6.50); PLATELET COUNT 352 K/mm3 (130-400); RED BLOOD COUNT 4.31 M/mm3 (4.10-5.30); RED CELL DISTRIBUTION WIDTH 12.9 % (11.5-14.5); WHITE BLOOD COUNT 8.7 K/mm3 (4.8-10.8)
[2020-06-10 11:27] LABS: ALBUMIN 4.3 g/dL (3.4-4.8); POTASSIUM 4.7 mmol/L (3.5-5.1)
[2020-06-10 11:28] LABS: CALCIUM 9.2 mg/dL (8.3-10.5)
[2020-06-10 11:29] LABS: TOTAL PROTEIN 6.4 g/dL (6.2-8.1)
[2020-06-10 11:31] LABS: TOTAL BILIRUBIN 0.3 mg/dL (0.2-1.2)
== END ==
LOC: LAB 10:44
PROVIDERS: Physician Assistant
DX: I50.32 Chronic diastolic (congestive) heart failure (principal); R63.5 Abnormal weight gain; R73.9 Hyperglycemia, unspecified

== ENCOUNTER 2020-06-11 11:30 | Outpatient (RCR) | payer MEDICARE ==
[2019-10-12 11:05] VITALS: BP 145/71
== END 2020-06-16 | disposition home or self-care (01) ==
LOC: PT
DX: Z00.00 Encounter for general adult medical examination without abnormal findings (principal); M48.062 Spinal stenosis, lumbar region with neurogenic claudication; R53.83 Other fatigue; M81.0 Age-related osteoporosis without current pathological fracture; S32.030A Wedge compression fracture of third lumbar vertebra, initial encounter for closed fracture

== ENCOUNTER 2020-06-16 13:32 | Outpatient (RCR) | payer MEDICARE ==
[2019-10-12 11:05] VITALS: BP 145/71
== END 2020-07-11 12:31 | disposition home or self-care (01) ==
LOC: OPPGERO 13:32
DX: F32.9 Major depressive disorder, single episode, unspecified (principal); F10.99 Alcohol use, unspecified with unspecified alcohol-induced disorder

== ENCOUNTER 2020-07-14 09:17 | Outpatient (RCR) | payer MEDICARE ==
[2019-10-12 11:05] VITALS: BP 145/71
== END 2020-08-08 16:10 | disposition home or self-care (01) ==
LOC: OPPGERO 09:17
DX: F32.9 Major depressive disorder, single episode, unspecified (principal); F10.20 Alcohol dependence, uncomplicated; F41.8 Other specified anxiety disorders; I10 Essential (primary) hypertension; J44.9 Chronic obstructive pulmonary disease, unspecified; K63.5 Polyp of colon; I50.30 Unspecified diastolic (congestive) heart failure; D50.9 Iron deficiency anemia, unspecified; G47.00 Insomnia, unspecified; I34.0 Nonrheumatic mitral (valve) insufficiency; M81.0 Age-related osteoporosis without current pathological fracture; I73.9 Peripheral vascular disease, unspecified; M48.062 Spinal stenosis, lumbar region with neurogenic claudication; Z87.891 Personal history of nicotine dependence

== ENCOUNTER 2020-08-11 09:28 | Outpatient (RCR) | payer MEDICARE ==
[2019-10-12 11:05] VITALS: BP 145/71
== END 2020-09-10 15:18 | disposition home or self-care (01) ==
LOC: OPPGERO 09:28
DX: F33.8 Other recurrent depressive disorders (principal); F10.21 Alcohol dependence, in remission; I10 Essential (primary) hypertension; J44.9 Chronic obstructive pulmonary disease, unspecified; S32.000D Wedge compression fracture of unspecified lumbar vertebra, subsequent encounter for fracture with routine healing; K63.5 Polyp of colon; I50.30 Unspecified diastolic (congestive) heart failure; M81.0 Age-related osteoporosis without current pathological fracture; M48.062 Spinal stenosis, lumbar region with neurogenic claudication; I34.0 Nonrheumatic mitral (valve) insufficiency; D50.9 Iron deficiency anemia, unspecified; Z87.891 Personal history of nicotine dependence; Z80.3 Family history of malignant neoplasm of breast

== ENCOUNTER 2020-09-11 08:05 | Outpatient (RCR) | payer MEDICARE ==
[2019-10-12 11:05] VITALS: BP 145/71
== END 2020-10-10 15:51 | disposition home or self-care (01) ==
LOC: OPPGERO 08:05
DX: F33.1 Major depressive disorder, recurrent, moderate (principal); I10 Essential (primary) hypertension; Z85.3 Personal history of malignant neoplasm of breast; Z72.89 Other problems related to lifestyle

== ENCOUNTER 2020-10-13 09:26 | Outpatient (RCR) | payer MEDICARE ==
[2019-10-12 11:05] VITALS: BP 145/71
== END 2020-11-07 16:00 | disposition home or self-care (01) ==
LOC: OPPGERO 09:26
DX: F41.8 Other specified anxiety disorders (principal); F10.21 Alcohol dependence, in remission; I10 Essential (primary) hypertension; J44.9 Chronic obstructive pulmonary disease, unspecified; M48.50XA Collapsed vertebra, not elsewhere classified, site unspecified, initial encounter for fracture; E61.1 Iron deficiency; I34.0 Nonrheumatic mitral (valve) insufficiency; M81.0 Age-related osteoporosis without current pathological fracture; I73.9 Peripheral vascular disease, unspecified; M48.062 Spinal stenosis, lumbar region with neurogenic claudication; E03.9 Hypothyroidism, unspecified; Z79.899 Other long term (current) drug therapy

== ENCOUNTER 2020-11-11 10:07 | Outpatient (RCR) | payer MEDICARE ==
[2019-10-12 11:05] VITALS: BP 145/71
== END 2020-12-10 15:35 | disposition home or self-care (01) ==
LOC: OPPGERO 10:07
DX: F33.1 Major depressive disorder, recurrent, moderate (principal); F10.20 Alcohol dependence, uncomplicated; J44.9 Chronic obstructive pulmonary disease, unspecified; K63.5 Polyp of colon; I50.30 Unspecified diastolic (congestive) heart failure; I11.0 Hypertensive heart disease with heart failure; M81.0 Age-related osteoporosis without current pathological fracture; I73.9 Peripheral vascular disease, unspecified; M48.062 Spinal stenosis, lumbar region with neurogenic claudication; Z87.891 Personal history of nicotine dependence

== ENCOUNTER 2020-12-11 09:37 | Outpatient (RCR) | payer MEDICARE | END 2021-01-09 22:29 | disposition home or self-care (01) | LOC: OPPGERO 09:37 | DX: F33.1 Major depressive disorder, recurrent, moderate (principal); F10.21 Alcohol dependence, in remission; J44.9 Chronic obstructive pulmonary disease, unspecified; I11.0 Hypertensive heart disease with heart failure; I50.30 Unspecified diastolic (congestive) heart failure; E61.1 Iron deficiency; M81.0 Age-related osteoporosis without current pathological fracture; Z87.891 Personal history of nicotine dependence; Z80.3 Family history of malignant neoplasm of breast ==

== ENCOUNTER 2021-01-12 05:04 | Outpatient (RCR) | payer MEDICARE | END 2021-02-10 15:54 | disposition still patient (30) | LOC: OPPGERO 05:04 | DX: F41.8 Other specified anxiety disorders (principal); F10.21 Alcohol dependence, in remission; I10 Essential (primary) hypertension; J44.9 Chronic obstructive pulmonary disease, unspecified; I50.30 Unspecified diastolic (congestive) heart failure; G47.00 Insomnia, unspecified; E61.1 Iron deficiency; I34.0 Nonrheumatic mitral (valve) insufficiency; M81.0 Age-related osteoporosis without current pathological fracture; I73.9 Peripheral vascular disease, unspecified; M48.062 Spinal stenosis, lumbar region with neurogenic claudication; E03.9 Hypothyroidism, unspecified; Z79.899 Other long term (current) drug therapy ==

== ENCOUNTER 2021-02-11 16:08 | Outpatient (RCR) | payer MEDICARE | END 2021-03-12 13:54 | disposition home or self-care (01) | LOC: OPPGERO 16:08 | DX: F41.8 Other specified anxiety disorders (principal); F10.21 Alcohol dependence, in remission; T51.0X1A Toxic effect of ethanol, accidental (unintentional), initial encounter; F19.90 Other psychoactive substance use, unspecified, uncomplicated; I10 Essential (primary) hypertension; J44.9 Chronic obstructive pulmonary disease, unspecified; K63.5 Polyp of colon; I50.33 Acute on chronic diastolic (congestive) heart failure; G47.00 Insomnia, unspecified; M48.062 Spinal stenosis, lumbar region with neurogenic claudication; I34.0 Nonrheumatic mitral (valve) insufficiency; M81.0 Age-related osteoporosis without current pathological fracture; I73.9 Peripheral vascular disease, unspecified; Z79.899 Other long term (current) drug therapy ==

== ENCOUNTER → 2021-02-24 | Outpatient (CLI) | payer MEDICARE | LOC: RAD 11:33 | DX: S92.512A Displaced fracture of proximal phalanx of left lesser toe(s), initial encounter for closed fracture (principal) ==

== ENCOUNTER → 2021-05-26 | Outpatient (CLI) | payer MEDICARE | LOC: RAD 15:45 | DX: M19.012 Primary osteoarthritis, left shoulder (principal); R07.9 Chest pain, unspecified ==

== ENCOUNTER → 2021-05-27 | Outpatient (CLI) | payer MEDICARE | LOC: MAMMO 13:45 | DX: Z12.31 Encounter for screening mammogram for malignant neoplasm of breast (principal) ==

== ENCOUNTER → 2021-05-27 | Outpatient (CLI) | payer MEDICARE ==
[2021-05-27 08:50] LABS: BASO # 0.06 K/mm3 (0.02-0.10); EOS # 0.34 K/mm3 (0.04-0.40); HEMATOCRIT 38.3 % (37.0-47.0); HEMOGLOBIN 12.2 g/dL (12.5-16.0); LYMPH# 2.44 K/mm3 (1.50-4.00); MEAN CELL VOLUME 86 fl (78-100); MEAN CORPUSCULAR HEMOGLOBIN 27 pg (27-31); MEAN CORPUSCULAR HGB CONC 32 g/dL (33-37); MEAN PLATELET VOLUME 8.6 fl (7.4-10.4); MONO # 0.64 K/mm3 (0.20-0.80); NEU # 5.06 K/mm3 (1.40-6.50); PLATELET COUNT 388 K/mm3 (130-400); RED BLOOD COUNT 4.48 M/mm3 (4.10-5.30); RED CELL DISTRIBUTION WIDTH 13.6 % (11.5-14.5); WHITE BLOOD COUNT 8.6 K/mm3 (4.8-10.8)
[2021-05-27 09:02] LABS: ALBUMIN 4.1 g/dL (3.4-4.8); POTASSIUM 4.2 mmol/L (3.5-5.1)
[2021-05-27 09:03] LABS: CALCIUM 9.5 mg/dL (8.3-10.5)
[2021-05-27 09:05] LABS: TOTAL PROTEIN 6.4 g/dL (6.2-8.1)
[2021-05-27 09:06] LABS: TOTAL BILIRUBIN 0.3 mg/dL (0.2-1.2)
== END ==
LOC: LAB 08:14
PROVIDERS: Physician Assistant
DX: Z13.29 Encounter for screening for other suspected endocrine disorder (principal); Z13.1 Encounter for screening for diabetes mellitus; E78.5 Hyperlipidemia, unspecified; R30.9 Painful micturition, unspecified; E61.1 Iron deficiency

== ENCOUNTER 2021-06-24 11:12 | Outpatient (RCR) | payer MEDICARE | END 2021-07-13 | disposition home or self-care (01) | LOC: PT | DX: M25.511 Pain in right shoulder (principal); M25.512 Pain in left shoulder ==

== ENCOUNTER → 2021-07-06 | Day surgery (SDC) | payer MEDICARE | END | disposition home or self-care (01) | LOC: MSO 07:28 | DX: Z12.11 Encounter for screening for malignant neoplasm of colon (principal); K63.5 Polyp of colon; J44.9 Chronic obstructive pulmonary disease, unspecified; G47.00 Insomnia, unspecified; I50.30 Unspecified diastolic (congestive) heart failure; F41.9 Anxiety disorder, unspecified; Z79.899 Other long term (current) drug therapy; Z87.891 Personal history of nicotine dependence | CPT/HCPCS: 00811; J2704; J7120 ==

== ENCOUNTER → 2021-10-13 | Outpatient (CLI) | payer MEDICARE | LOC: LAB 10:24 | DX: R05.1 Acute cough (principal) ==

== ENCOUNTER → 2021-11-26 | Outpatient (CLI) | payer MEDICARE ==
[2021-11-28 06:00] LABS: ALTERNARIA TENUIS CNT <0.10 kU/L (()); ASPERGILLUS FUMIGATUS AL COUNT <0.10 kU/L (()); BERMUDA GRASS ALLERGEN COUNT <0.10 kU/L (()); BOX ELDER-MAPLE ALLERGEN COUNT <0.10 kU/L (()); CAT DANDER ALLERGEN COUNT <0.10 kU/L (()); CLADOSPORIUM ALLERGEN COUNT <0.10 kU/L (()); COCKROACH ALLERGEN COUNT 0.14 kU/L (()); COTTONWOOD TREE ALLERGEN COUNT <0.10 kU/L (()); DOG DANDER ALLERGEN COUNT <0.10 kU/L (()); DUST MITES (D.F.) ALLERG COUNT 0.12 kU/L (()); DUST MITES (D.P.) ALLERG COUNT 0.12 kU/L (()); ELM TREE ALLERGEN COUNT <0.10 kU/L (()); FIREBUSH ALLERGEN COUNT 0.15 kU/L (()); OAK ALLERGEN COUNT <0.10 kU/L (()); ROUGH MARSH ELDER ALLERG COUNT <0.10 kU/L (()); RUSSIAN THISTLE ALLERGEN COUNT 0.29 kU/L (()); SHORT RAGWEED ALLERGEN COUNT 0.12 kU/L (())
== END ==
LOC: LAB 12:55
PROVIDERS: Internal Medicine Pulmonary Disease
DX: J44.9 Chronic obstructive pulmonary disease, unspecified (principal)

== ENCOUNTER 2022-01-20 10:05 | Outpatient (RCR) | payer MEDICARE | END 2022-02-10 | disposition home or self-care (01) | LOC: PT | DX: R26.1 Paralytic gait (principal); R53.1 Weakness ==

== ENCOUNTER → 2022-06-29 | Outpatient (CLI) | payer MEDICARE | LOC: RAD 09:47 → MAMMO 11:30 | DX: Z12.31 Encounter for screening mammogram for malignant neoplasm of breast (principal); Z13.820 Encounter for screening for osteoporosis; M81.0 Age-related osteoporosis without current pathological fracture ==

== ENCOUNTER → 2022-08-16 | Outpatient (CLI) | payer MEDICARE | LOC: RAD 10:35 | DX: M85.841 Other specified disorders of bone density and structure, right hand (principal) ==

== ENCOUNTER → 2023-06-20 | Outpatient (CLI) | payer MEDICARE ==
[~2023-06-20] MED LIST changes: +BENZONATATE100 M2 PO; +PAIN RELIEF1 EACH TP; +PAXLOVID CO-PA1 EACH PO; +PREDNISONE20 MG PO
[2023-06-20 10:12] LABS: BASO # 0.07 K/mm3 (0.02-0.10); EOS # 0.16 K/mm3 (0.04-0.40); EOS % 1.4 % (1.0-5.0); HEMOGLOBIN 12.4 g/dL (12.5-16.0); MEAN CELL VOLUME 88 fl (78-100); MEAN CORPUSCULAR HEMOGLOBIN 28 pg (27-31); MEAN CORPUSCULAR HGB CONC 32 g/dL (33-37); MEAN PLATELET VOLUME 8.4 fl (7.4-10.4); MONO # 0.61 K/mm3 (0.20-0.80); PLATELET COUNT 374 K/mm3 (130-400); RED BLOOD COUNT 4.45 M/mm3 (4.10-5.30); RED CELL DISTRIBUTION WIDTH 14.4 % (11.5-14.5); WHITE BLOOD COUNT 11.6 K/mm3 (4.8-10.8)
[2023-06-20 10:25] LABS: ALBUMIN 4.2 g/dL (3.4-4.8)
[2023-06-20 10:27] LABS: TOTAL PROTEIN 6.5 g/dL (6.2-8.1)
[2023-06-20 10:28] LABS: CALCIUM 9.1 mg/dL (8.3-10.5)
[2023-06-20 10:31] LABS: TOTAL BILIRUBIN 0.4 mg/dL (0.2-1.2)
== END ==
LOC: LAB 09:52
PROVIDERS: Physician Assistant
DX: Z00.00 Encounter for general adult medical examination without abnormal findings (principal); Z12.39 Encounter for other screening for malignant neoplasm of breast; K90.9 Intestinal malabsorption, unspecified; E78.5 Hyperlipidemia, unspecified

== ENCOUNTER → 2023-07-19 | Outpatient (CLI) | payer MEDICARE | LOC: MAMMO 13:30 | DX: Z12.31 Encounter for screening mammogram for malignant neoplasm of breast (principal) ==

== ENCOUNTER → 2024-01-23 | Outpatient (CLI) | payer MEDICARE ==
[2024-01-23 15:16] LABS: URINE APPEARANCE SLIGHTLY CLOUDY (CLEAR); URINE COLOR YELLOW (YELLOW)
[2024-01-23 15:17] LABS: URINE BILIRUBIN NEGATIVE (NEGATIVE); URINE BLOOD 2+ (NEGATIVE); URINE GLUCOSE NEGATIVE (NEGATIVE); URINE KETONE NEGATIVE (NEGATIVE); URINE LEUKOCYTE ESTERASE TRACE (NEGATIVE); URINE NITRATE NEGATIVE (NEGATIVE); URINE PROTEIN(semi-quant) NEGATIVE (NEGATIVE)
== END ==
LOC: LAB 14:44
PROVIDERS: Nurse Practitioner Family
DX: R30.0 Dysuria (principal)

== ENCOUNTER → 2024-05-07 | Outpatient (REF) | payer MEDICARE | LOC: LAB 08:22 | DX: R05.9 Cough, unspecified (principal) ==

== ENCOUNTER → 2024-05-07 | Outpatient (CLI) | payer MEDICARE | LOC: RAD 09:15 | DX: R05.9 Cough, unspecified (principal) ==

== ENCOUNTER → 2024-05-11 | Outpatient (CLI) | payer MEDICARE ==
[2024-05-11 09:23] LABS: HEMATOCRIT 40.3 % (37.0-47.0); HEMOGLOBIN 12.9 g/dL (12.5-16.0); MEAN CELL VOLUME 89 fl (78-100); MEAN CORPUSCULAR HEMOGLOBIN 28 pg (27-31); MEAN CORPUSCULAR HGB CONC 32 g/dL (33-37); MEAN PLATELET VOLUME 8.3 fl (7.4-10.4); PLATELET COUNT 367 K/mm3 (130-400); RED BLOOD COUNT 4.55 M/mm3 (4.10-5.30); WHITE BLOOD COUNT 14.8 K/mm3 (4.8-10.8)
[2024-05-11 09:30] LABS: ALBUMIN 4.3 g/dL (3.4-4.8)
[2024-05-11 09:31] LABS: CALCIUM 9.6 mg/dL (8.3-10.5)
[2024-05-11 09:32] LABS: TOTAL PROTEIN 6.5 g/dL (6.2-8.1)
[2024-05-11 09:34] LABS: TOTAL BILIRUBIN 0.4 mg/dL (0.2-1.2)
[2024-05-11 10:03] LABS: LYMPHOCYTE 48 % (20-51); MONOCYTE 4 % (3-10); NEUTROPHILS 48 % (42-75)
== END ==
LOC: RAD 09:13 → LAB 09:13
PROVIDERS: Physician Assistant
DX: J06.9 Acute upper respiratory infection, unspecified (principal)

== ENCOUNTER → 2024-07-24 | Outpatient (CLI) | payer MEDICARE ==
[2024-07-24 15:33] LABS: BASO # 0.07 K/mm3 (0.02-0.10); EOS # 0.13 K/mm3 (0.04-0.40); EOS % 1.1 % (1.0-5.0); HEMATOCRIT 39.3 % (37.0-47.0); HEMOGLOBIN 12.3 g/dL (12.5-16.0); LYMPH# 4.27 K/mm3 (1.50-4.00); MEAN CELL VOLUME 93 fl (78-100); MEAN CORPUSCULAR HEMOGLOBIN 29 pg (27-31); MEAN CORPUSCULAR HGB CONC 31 g/dL (33-37); MEAN PLATELET VOLUME 8.6 fl (7.4-10.4); MONO # 0.75 K/mm3 (0.20-0.80); NEU # 6.19 K/mm3 (1.40-6.50); PLATELET COUNT 346 K/mm3 (130-400); RED BLOOD COUNT 4.23 M/mm3 (4.10-5.30); RED CELL DISTRIBUTION WIDTH 13.8 % (11.5-14.5); WHITE BLOOD COUNT 11.4 K/mm3 (4.8-10.8)
[2024-07-24 15:39] LABS: ALBUMIN 4.2 g/dL (3.4-4.8)
[2024-07-24 15:40] LABS: CALCIUM 9.7 mg/dL (8.3-10.5)
[2024-07-24 15:41] LABS: TOTAL PROTEIN 6.9 g/dL (6.2-8.1)
[2024-07-24 15:43] LABS: TOTAL BILIRUBIN 0.3 mg/dL (0.2-1.2)
[2024-07-25 01:04] LABS: HEPATITIS C VIRUS ANTIBODY Nonreactive (Nonreactiv)
== END ==
LOC: LAB 14:06
PROVIDERS: Physician Assistant
DX: Z13.29 Encounter for screening for other suspected endocrine disorder (principal); Z11.59 Encounter for screening for other viral diseases; Z13.1 Encounter for screening for diabetes mellitus; M81.0 Age-related osteoporosis without current pathological fracture; I10 Essential (primary) hypertension; K90.9 Intestinal malabsorption, unspecified; E78.5 Hyperlipidemia, unspecified; E61.1 Iron deficiency

== ENCOUNTER → 2024-07-26 | Outpatient (CLI) | payer MEDICARE | LOC: MAMMO 15:00 | DX: Z12.31 Encounter for screening mammogram for malignant neoplasm of breast (principal) ==

== ENCOUNTER → 2024-07-26 | Outpatient (CLI) | payer MEDICARE | LOC: RAD 15:11 → MAMMO 15:30 | DX: Z13.820 Encounter for screening for osteoporosis (principal); M85.80 Other specified disorders of bone density and structure, unspecified site ==